=== PATIENT | male | born 1955 | race Caucasian/White ===

== ENCOUNTER 2018-08-18 13:53 | Inpatient (IN) ==
[2018-08-18] MEDS ORDERED: methylPREDNISolone 125 MG/2 ML VIAL ONE (14:02)
[2018-08-18] MEDS ORDERED: methylPREDNISolone 125 MG/2 ML VIAL IVP ONE ×2 (14:03→16:55)
--- NOTE | 2018-08-18 14:03 | Emergency Department Note ---
Disposition Clinical Impression: Neck mass, Lymphoma, Epiglottitis, Tonsillitis Disposition: Admitted As Inpatient Referrals: Kenneth Gomez MD [Primary Care Provider] - Forms: ED Satisfaction Letter General Adult HPI - General Chief complaint: ED Shortness of Breath/Dyspnea Stated complaint: ROBERTO Time Seen by Provider: 08/18/18 14:03 Source: patient Limitations: no limitations - History of Present Illness HPI Narrative: 63-year-old male reports emergency department complaining of difficulty breathing. He describes throat swelling. There is no history of irritant substance exposure or rash or lip swelling. He does not take CONTRERAS inhibitor medication. The patient has a history of thyroid surgery. He denies any chest pain or history of heart failure or CAD. There is no history of aspirated or swallowed foreign body. No abdominal pain vomiting or diarrhea. No confusion. The patient's had no trouble swallowing. There is no history of swelling of the lips or facies no fevers. He began having increasing hoarseness of voice with trouble breathing earlier this morning. There is no history of syncope, bleeding of any sort, he is not anticoagulated. There is no history of confusion. Pain Scale: 0 - Related Data Home Medications Medication Instructions Recorded Confirmed Chlorthalidone 25 mg PO DAILY 08/18/18 08/18/18 Cholecalciferol (D-3) [Vitamin D] 5,000 unit PO DAILY 08/18/18 08/18/18 Levothyroxine [Synthroid] 50 mcg PO QAM 08/18/18 08/18/18 Allergies Allergy/AdvReac Type Severity Reaction Status Date / Time levofloxacin [From Levaquin] Allergy Hives Verified 08/18/18 13:59 All systems ED: reviewed and negative except as stated. Past Medical History - Past Medical History Medical history: Reports: asthma, cancer, hypertension, other Surgical history: Reports: thyroidectomy Psychiatric history: Reports: no psych history - Social History Smoking Status: Never smoker Smokeless Tobacco Status: No Alcohol use: Reports: rarely Drug use: Reports: none Physical Exam - General Limitations: no limitations General appearance: alert, in no apparent distress, anxious, other (The patient is sitting upright, he is able to answer questions and speak in full sentences although his voice seems very hoarse. He does not appear to be in respiratory labor or lavonne distress.) - Head Head exam: atraumatic, normocephalic, normal inspection - Eye Eye exam: Present: PERRL, EOMI, conjunctival injection, other (Mild lid edema bilaterally.) - ENT ENT exam: mucous membranes moist, TM's normal bilaterally, other (Oropharynx shows hyperemia and edema, the patient is intolerant of tongue depressor examination. What is viewed does not show overt obstruction.) - Neck Neck exam: Present: normal inspection, full ROM, trachea midline. Absent: tenderness - Chest Chest inspection: Present: normal inspection. Absent: symmetric chest wall rise - Respiratory Respiratory exam: Present: normal lung sounds bilaterally. Absent: respiratory distress, prolonged expiratory phase - Cardiovascular Cardiovascular exam: Present: regular rate, normal rhythm, normal heart sounds - Abdominal Exam Abdominal exam: Present: soft, Non-Tender, normal bowel sounds. Absent: tenderness, distention, guarding, rebound, rigidity, trauma - Extremities Exam Extremities exam: Present: normal inspection, full ROM, normal capillary refill. Absent: tenderness, pedal edema, joint swelling, calf tenderness - Expanded Lower Extremity Exam Neurovascular/Tendon exam: Present: normal capillary refill. Absent: motor deficit, sensory deficit, tendon deficit, extremity cold to touch, pallor - Back Exam Back exam: Present: normal inspection, full ROM. Absent: tenderness, CVA tenderness (R), CVA tenderness (L), vertebral tenderness - Neurological Exam Neurological exam: Present: alert, oriented X3, CN II-XII intact. Absent: motor sensory deficit - Psychiatric Psychiatric exam: Present: normal affect, normal mood - Skin Skin exam: Present: warm, dry, intact, normal color Course Vital Signs Temperature 97.8 F 08/18/18 13:59 Pulse Rate 105 08/18/18 13:59 Respiratory Rate 28 08/18/18 13:59 Blood Pressure 138/104 08/18/18 13:59 O2 Sat by Pulse Oximetry 95 08/18/18 13:59 Temperature 97.8 F 08/18/18 13:59 Pulse Rate 95 08/18/18 16:59 Respiratory Rate 20 08/18/18 16:59 Blood Pressure 154/110 08/18/18 16:59 O2 Sat by Pulse Oximetry 92 08/18/18 16:59 Oxygen Delivery Oxygen Delivery Room Air Medical Decision Making - [facility] Narrative Medical decision making narrative: The patient presents with a sore throat and raspy voice. 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 The patient was monitored in the emergency department and appeared to be stable, Solu-Medrol Pepcid Benadryl were given IV. Vancomycin and Rocephin also given. Basic laboratory studies EKG were obtained no major abnormality. The patient's CT chest and soft tissue neck show neck masses chest mass suggestive of lymphoma, as well as severe tonsillitis and epiglottitis. The patient maintained his airway and was able to phonate in the emergency department. ENT was consult, the ENT APC came to the emergency department and evaluated the patient laryngoscope, they could not fully evaluate the cord to do note significant edema. After review, the patient will be admitted to the hospital. ENT will act as documentum consultant, and medicine will admit. I spoke with the hospitalist on-call who is excepted the patient to their care. The patient is agreeable. He remains stable in the emergency department pending admission. - Lab Data Lab results reviewed: Yes I reviewed the patient's lab results. Result diagrams: 08/18/18 14:20 08/18/18 14:20 Lab Results 08/18/18 08/18/18 08/18/18 Range/Units 14:20 14:20 14:20 WBC 7.3 (4.3-11.1) K/mcL RBC 5.18 (4.19-5.50) M/mcL Hgb 17.0 H (12.9-16.9) g/dL Hct 49.1 (37.5-50.1) % MCV 94.8 (83.0-100.0) fL MCH 32.8 (28.0-33.3) pg MCHC 34.6 (31.6-35.5) g/dL RDW 13.6 (11.5-14.5) % Plt Count 160 (140-400) K/mcL MPV 9.0 L (9.4-12.4) fL Immature Gran % 0.6 (0-4) % Seg Neutrophils % 61.9 % Lymphocytes % 24.8 % Monocytes % 11.0 % Eosinophils % 1.1 % Basophils % 0.6 % Neutrophils # 4.5 (1.6-8.9) K/mcL Lymphocytes # 1.8 (0.6-4.6) K/mcL Monocytes # 0.8 (0.0-1.3) K/mcL Eosinophils # 0.1 (0.0-0.6) K/mcL Basophils # 0.0 (0.0-0.2) K/mcL PT (9.4-12.1) Seconds INR APTT (26.0-36.0) Seconds Sodium 137 (136-145) mEq/L Potassium 3.4 L (3.5-5.1) mEq/L Chloride 97 L (98-107) mEq/L Carbon Dioxide 31 H (23-29) mEq/L BUN 14 (8-23) mg/dL Creatinine 0.69 L (0.70-1.30) mg/dL Est GFR ( Amer) > 60 (> 60) Est GFR (Non-Af Amer) > 60 (> 60) BUN/Creatinine Ratio 20 (6-26) Glucose 141 H (70-105) mg/dL Calculated Osmolality 287 (280-300) Lactic Acid 1.3 (0.5-2.2) mmol/L Calcium 9.4 (8.6-10.3) mg/dL Total Bilirubin 0.8 (0.3-1.0) mg/dL Direct Bilirubin 0.2 (0.0-0.2) mg/dL Indirect Bilirubin 0.6 (0.0-1.2) mg/dL AST 35 (13-39) Units/L ALT 33 (7-52) Units/L Alkaline Phosphatase 108 H (34-104) Units/L Troponin I < 0.03 (< 0.04) ng/mL B-Natriuretic Peptide (Less than 100) pg/mL Serum Total Protein 6.6 (6.4-8.9) g/dL Albumin 4.0 (3.5-5.7) g/dL Globulin 2.6 (2.4-3.5) g/dL Albumin/Globulin Ratio 1.5 (1.1-2.2) TSH (0.340-5.600) mcIU/mL Free T4 (0.70-2.00) ng/dl 08/18/18 08/18/18 08/18/18 Range/Units 14:20 14:20 14:20 WBC (4.3-11.1) K/mcL RBC (4.19-5.50) M/mcL Hgb (12.9-16.9) g/dL Hct (37.5-50.1) % MCV (83.0-100.0) fL MCH (28.0-33.3) pg MCHC (31.6-35.5) g/dL RDW (11.5-14.5) % Plt Count (140-400) K/mcL MPV (9.4-12.4) fL Immature Gran % (0-4) % Seg Neutrophils % % Lymphocytes % % Monocytes % % Eosinophils % % Basophils % % Neutrophils # (1.6-8.9) K/mcL Lymphocytes # (0.6-4.6) K/mcL Monocytes # (0.0-1.3) K/mcL Eosinophils # (0.0-0.6) K/mcL Basophils # (0.0-0.2) K/mcL PT 12.3 H (9.4-12.1) Seconds INR 1.1 APTT 32.1 (26.0-36.0) Seconds Sodium (136-145) mEq/L Potassium (3.5-5.1) mEq/L Chloride (98-107) mEq/L Carbon Dioxide (23-29) mEq/L BUN (8-23) mg/dL Creatinine (0.70-1.30) mg/dL Est GFR ( Amer) (> 60) Est GFR (Non-Af Amer) (> 60) BUN/Creatinine Ratio (6-26) Glucose (70-105) mg/dL Calculated Osmolality (280-300) Lactic Acid (0.5-2.2) mmol/L Calcium (8.6-10.3) mg/dL Total Bilirubin (0.3-1.0) mg/dL Direct Bilirubin (0.0-0.2) mg/dL Indirect Bilirubin (0.0-1.2) mg/dL AST (13-39) Units/L ALT (7-52) Units/L Alkaline Phosphatase (34-104) Units/L Troponin I (< 0.04) ng/mL B-Natriuretic Peptide 17 (Less than 100) pg/mL Serum Total Protein (6.4-8.9) g/dL Albumin (3.5-5.7) g/dL Globulin (2.4-3.5) g/dL Albumin/Globulin Ratio (1.1-2.2) TSH 2.033 (0.340-5.600) mcIU/mL Free T4 0.81 (0.70-2.00) ng/dl 08/18/18 Range/Units 16:37 WBC (4.3-11.1) K/mcL RBC (4.19-5.50) M/mcL Hgb (12.9-16.9) g/dL Hct (37.5-50.1) % MCV (83.0-100.0) fL MCH (28.0-33.3) pg MCHC (31.6-35.5) g/dL RDW (11.5-14.5) % Plt Count (140-400) K/mcL MPV (9.4-12.4) fL Immature Gran % (0-4) % Seg Neutrophils % % Lymphocytes % % Monocytes % % Eosinophils % % Basophils % % Neutrophils # (1.6-8.9) K/mcL Lymphocytes # (0.6-4.6) K/mcL Monocytes # (0.0-1.3) K/mcL Eosinophils # (0.0-0.6) K/mcL Basophils # (0.0-0.2) K/mcL PT (9.4-12.1) Seconds INR APTT (26.0-36.0) Seconds Sodium (136-145) mEq/L Potassium (3.5-5.1) mEq/L Chloride (98-107) mEq/L Carbon Dioxide (23-29) mEq/L BUN (8-23) mg/dL Creatinine (0.70-1.30) mg/dL Est GFR ( Amer) (> 60) Est GFR (Non-Af Amer) (> 60) BUN/Creatinine Ratio (6-26) Glucose (70-105) mg/dL Calculated Osmolality (280-300) Lactic Acid 0.8 (0.5-2.2) mmol/L Calcium (8.6-10.3) mg/dL Total Bilirubin (0.3-1.0) mg/dL Direct Bilirubin (0.0-0.2) mg/dL Indirect Bilirubin (0.0-1.2) mg/dL AST (13-39) Units/L ALT (7-52) Units/L Alkaline Phosphatase (34-104) Units/L Troponin I (< 0.04) ng/mL B-Natriuretic Peptide (Less than 100) pg/mL Serum Total Protein (6.4-8.9) g/dL Albumin (3.5-5.7) g/dL Globulin (2.4-3.5) g/dL Albumin/Globulin Ratio (1.1-2.2) TSH (0.340-5.600) mcIU/mL Free T4 (0.70-2.00) ng/dl - Radiology Data Radiology results reviewed: Yes I reviewed the patient's radiology results.
[2018-08-18] MEDS ORDERED: Famotidine 20 MG/2 ML VIAL IVP ONE (14:05)
[2018-08-18] MEDS ORDERED: Isovue-370 500 ML BOTTLE IVP ONE ×2 (14:06→14:24)
[2018-08-18 14:34] LABS: Basophils % 0.6 %; Eosinophils # 0.1 K/mcL (0.0-0.6); Eosinophils % 1.1 %; Hematocrit 49.1 % (37.5-50.1); Immature Granulocytes % 0.6 % (0-4); Lymphocytes # 1.8 K/mcL (0.6-4.6); Lymphocytes % 24.8 %; Mean Corpuscular HGB Conc 34.6 g/dL (31.6-35.5); Mean Corpuscular Hemoglobin 32.8 pg (28.0-33.3); Mean Corpuscular Volume 94.8 fL (83.0-100.0); Monocytes # 0.8 K/mcL (0.0-1.3); Neutrophils # 4.5 K/mcL (1.6-8.9); Platelet Count 160 K/mcL (140-400); Red Blood Count 5.18 M/mcL (4.19-5.50); Red Cell Distribution Width 13.6 % (11.5-14.5); Segmented Neutrophils % 61.9 %
[2018-08-18 14:41] LABS: INR 1.1; Prothrombin Time 12.3 Seconds (9.4-12.1)
[2018-08-18 14:44] LABS: Activated Partial Thrombo Time 32.1 Seconds (26.0-36.0)
[2018-08-18 15:01] LABS: Alanine Aminotransferase 33 Units/L (7-52); Albumin/Globulin Ratio 1.5 (1.1-2.2); Alkaline Phosphatase 108 Units/L (34-104); Aspartate Amino Transferase 35 Units/L (13-39); BUN/Creatinine Ratio 20 (6-26); Bilirubin,Direct 0.2 mg/dL (0.0-0.2); Bilirubin,Indirect 0.6 mg/dL (0.0-1.2); Bilirubin,Total 0.8 mg/dL (0.3-1.0); Blood Urea Nitrogen 14 mg/dL (8-23); Calcium 9.4 mg/dL (8.6-10.3); Carbon Dioxide 31 mEq/L (23-29); Chloride 97 mEq/L (98-107); Globulin 2.6 g/dL (2.4-3.5); Glucose 141 mg/dL (70-105); Osmolality,Calculated 287 (280-300); Potassium 3.4 mEq/L (3.5-5.1); Sodium 137 mEq/L (136-145); Total Protein 6.6 g/dL (6.4-8.9); Troponin I < 0.03 ng/mL (< 0.04); eGFR For Non-African Americans > 60 (> 60)
[2018-08-18 15:07] LABS: Thyroid Stimulating Hormone 2.033 mcIU/mL (0.340-5.600)
[2018-08-18] MEDS ORDERED: cefTRIAXone 1,000 MG in Water for inj. (sterile) 20 ML 10 ML IVP ONE (16:07)
[2018-08-18] MEDS ORDERED: Vancomycin (wt based) 1,000 MG VIAL IV ONE (16:09)
--- NOTE | 2018-08-18 17:28 | ENT - Consult Note ---
<Marylin White A - Last Filed: 08/18/18 18:18> Date of Encounter: 08/18/18 Time of Encounter: 17:24 Assessment and Plan (1) Airway obstruction Status: Acute Narrow airway demonstrated on CT scan and nasolaryngoscopy exam. See findings of nasolaryngoscopy exam. Scope was completed with Dr. Crespo ENT physician. Minor watery edema of AE folds, and false folds, effacement of the pyriform sinus on the left due to watery edema. Epiglottis sharp without significant edema. Discussed with patient that findings are believed to be likely close to baseline due to post operative changes, with slight amount of additional edema, likely due to oropharyngeal candidiasis. Patient also with angular chelitis present on examination that looks consistent with thrush. Patient is currently stable with o2 sats >93% room air. No stridor or wheezing. Recommend admission with close observation of airway and respiratory status, continuous pulse ox. Decadron 20 mg q8h x 3 doses. ENT will be available as needed. (2) History of thyroid cancer Status: Acute Patient with history of thyroid lymphoma with previous partial thyroidectomy. Patient reports history of vocal cord paralysis, right side identified after thyroid surgery. Patient denies any worsening of hoarseness and reports hoarseness has been present for two years. 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 (4) Candidal cheilitis Status: Acute Recommend nystatin cream for corners of the mouth. (5) Oropharyngeal candidiasis Status: Acute recommend nystatin swish and swallow. History of Present Illness Consult date: 08/18/18 Reason for ENT Consult: airway complication Requesting physician: Sammy Padgett History of present illness: 63-year-old male with past medical history of thyroid lymphoma with partial thyroidectomy performed approximately 2 years ago, smoker. Patient presented to emergency department with complaint of difficulty breathing, reported throat swelling with odynophagia, which he reports began this morning. He denies any difficulty controlling secretions or dysphagia. Patient denies any sick contacts or recent exposures to new environmental agents, food, etc. CT scan demonstrated Severe pharyngitis resulting in near complete effacement of the airway at the level of the hypopharynx, with Mild concurrent epiglottitis. ENT consulted for tommy oncercris for airway obstruction. Upon examination patient is stable >93% on room air. Voice is with hoarseness which is reported by patient as chronic unchanged for two years following thyroid surgery and due to vocal cord dysfunction. Patient without audible wheezing or stridor. Patient currently controlling secretions, although demonstrates increased work of swallowing. Past Med Surg Social Fam HX - Past Medical History Medical history: asthma, cancer, hypertension, other Additional medical history: THYROID CANCER WITH THYROIDECTOMY Psychiatric history: no psych history - Past Surgical History Surgical History: thyroidectomy - Social History Smoking Status: Never smoker Smokeless Tobacco Status: No Alcohol use: rarely Drug use: none - Family History Mother Adopted: No Family Member Ethnicity: Non- Living Status: Medications and Allergies Chlorthalidone 25 mg PO DAILY 08/18/18 [History] Cholecalciferol (D-3) [Vitamin D] 5,000 unit PO DAILY 08/18/18 [History] Levothyroxine [Synthroid] 50 mcg PO QAM 08/18/18 [History] RX: Nystatin Cream [Mycostatin Cream] 1 appl TP BID 10 Days #1 tube 08/19/18 [Rx] RX: Nystatin [Nystatin Suspension] 400,000 unit PO QID 14 Days #230 oral.susp 08/19/18 [Rx] Allergy/AdvReac Type Severity Reaction Status Date / Time levofloxacin [From Levaquin] Allergy Hives Verified 08/18/18 13:59 ENT - ROS - EENT Nose, mouth and throat: sore throat, throat swelling, other (ROBERTO) ENT Exam Initial Vital Signs Temp Pulse Resp BP Pulse Ox 97.8 F 105 28 138/104 95 08/18/18 13:59 08/18/18 13:59 08/18/18 13:59 08/18/18 13:59 08/18/18 13:59 - General physical appearance well developed, well nourished, no distress - Eyes PERRL, normal ocular movement - ENT normal pinna, normal nares, normal mucosa, CN 2-12 grossly intact, Other (EARS: EAC's with moderate amount of non obstructing cerumen present bilaterally, TM's normal bilaterally. NOSE: septum deviated to the right, inferior turbinates normal bilaterally,nares patent bilaterally. ORAL: white coating noted to corners of the mouth bilaterally, worse on right. No swelling of the tongue or oral mucosa. Uvula midline. ) - Neck trachea midline - Respiratory normal expansion, normal respiratory effort - Psychiatric oriented to time, oriented to person, oriented to place, other (hoarseness of voice reported as chronic) Exam Initial Vital Signs Temp Pulse Resp BP Pulse Ox 97.8 F 105 28 138/104 95 08/18/18 13:59 08/18/18 13:59 08/18/18 13:59 08/18/18 13:59 08/18/18 13:59 Results - Labs 08/18/18 14:20 08/18/18 14:20 Abnormal lab results Hgb 17.0 g/dL (12.9-16.9) H 08/18/18 14:20 MPV 9.0 fL (9.4-12.4) L 08/18/18 14:20 PT 12.3 Seconds (9.4-12.1) H 08/18/18 14:20 Potassium 3.4 mEq/L (3.5-5.1) L 08/18/18 14:20 Chloride 97 mEq/L (98-107) L 08/18/18 14:20 Carbon Dioxide 31 mEq/L (23-29) H 08/18/18 14:20 0.69 mg/dL (0.70-1.30) L 08/18/18 14:20 Glucose 141 mg/dL (70-105) H 08/18/18 14:20 108 Units/L (34-104) H 08/18/18 14:20 Diabetes panel 08/18/18 Range/Units 14:20 Sodium 137 (136-145) mEq/L Potassium 3.4 L (3.5-5.1) mEq/L Chloride 97 L (98-107) mEq/L Carbon Dioxide 31 H (23-29) mEq/L BUN 14 (8-23) mg/dL Creatinine 0.69 L (0.70-1.30) mg/dL Glucose 141 H (70-105) mg/dL Calcium 9.4 (8.6-10.3) mg/dL AST 35 (13-39) Units/L ALT 33 (7-52) Units/L Alkaline Phosphatase 108 H (34-104) Units/L Albumin 4.0 (3.5-5.7) g/dL Thyroid panel 08/18/18 Range/Units 14:20 TSH 2.033 (0.340-5.600) mcIU/mL Calcium panel 08/18/18 Range/Units 14:20 Calcium 9.4 (8.6-10.3) mg/dL Albumin 4.0 (3.5-5.7) g/dL Pituitary panel 08/18/18 08/18/18 Range/Units 14:20 14:20 Sodium 137 (136-145) mEq/L Potassium 3.4 L (3.5-5.1) mEq/L Chloride 97 L (98-107) mEq/L Carbon Dioxide 31 H (23-29) mEq/L BUN 14 (8-23) mg/dL Creatinine 0.69 L (0.70-1.30) mg/dL Glucose 141 H (70-105) mg/dL Calcium 9.4 (8.6-10.3) mg/dL TSH 2.033 (0.340-5.600) mcIU/mL Adrenal panel 08/18/18 Range/Units 14:20 Sodium 137 (136-145) mEq/L Potassium 3.4 L (3.5-5.1) mEq/L Chloride 97 L (98-107) mEq/L Carbon Dioxide 31 H (23-29) mEq/L BUN 14 (8-23) mg/dL Creatinine 0.69 L (0.70-1.30) mg/dL Glucose 141 H (70-105) mg/dL Calcium 9.4 (8.6-10.3) mg/dL Total Bilirubin 0.8 (0.3-1.0) mg/dL AST 35 (13-39) Units/L ALT 33 (7-52) Units/L Alkaline Phosphatase 108 H (34-104) Units/L Albumin 4.0 (3.5-5.7) g/dL All other labs normal. Consult Discharge Plan - Plan Referrals: Kenneth Gomez MD [Primary Care Provider] - Prescriptions: RX: Nystatin Cream [Mycostatin Cream] 1 appl TP BID 10 Days #1 tube RX: Nystatin [Nystatin Suspension] 400,000 unit PO QID 14 Days #230 oral.susp <Coco Crespo - Last Filed: 08/19/18 12:21> Date of Encounter: 08/19/18 Assessment and Plan (1) Airway obstruction Status: Chronic (2) History of thyroid cancer Status: Acute (3) Paralysis of right vocal cord Status: Chronic (4) Candidal cheilitis Status: Acute (5) Oropharyngeal candidiasis Status: Acute (6) Chest mass Status: Acute ENT Exam Initial Vital Signs Temp Pulse Resp BP Pulse Ox 97.8 F 105 28 138/104 95 08/18/18 13:59 08/18/18 13:59 08/18/18 13:59 08/18/18 13:59 08/18/18 13:59 Exam Initial Vital Signs Temp Pulse Resp BP Pulse Ox 97.8 F 105 28 138/104 95 08/18/18 13:59 08/18/18 13:59 08/18/18 13:59 08/18/18 13:59 08/18/18 13:59 Results - Labs 08/19/18 06:34 08/19/18 06:34 Abnormal lab results WBC 11.3 K/mcL (4.3-11.1) H D 08/19/18 06:34 Hgb 17.1 g/dL (12.9-16.9) H 08/19/18 06:34 MPV 9.1 fL (9.4-12.4) L 08/19/18 06:34 9.0 K/mcL (1.6-8.9) H 08/19/18 06:34 PT 12.3 Seconds (9.4-12.1) H 08/18/18 14:20 Potassium 3.4 mEq/L (3.5-5.1) L 08/18/18 14:20 Chloride 97 mEq/L (98-107) L 08/18/18 14:20 Carbon Dioxide 31 mEq/L (23-29) H 08/18/18 14:20 0.67 mg/dL (0.70-1.30) L 08/19/18 06:34 Glucose 175 mg/dL (70-105) H 08/19/18 06:34 POC Glucose 165 mg/dL (70-99) H 08/18/18 21:25 108 Units/L (34-104) H 08/18/18 14:20 Diabetes panel 08/18/18 08/19/18 Range/Units 14:20 06:34 Sodium 137 136 (136-145) mEq/L Potassium 3.4 L 3.9 (3.5-5.1) mEq/L Chloride 97 L 99 (98-107) mEq/L Carbon Dioxide 31 H 27 (23-29) mEq/L BUN 14 13 (8-23) mg/dL Creatinine 0.69 L 0.67 L (0.70-1.30) mg/dL Glucose 141 H 175 H (70-105) mg/dL Calcium 9.4 9.2 (8.6-10.3) mg/dL AST 35 (13-39) Units/L ALT 33 (7-52) Units/L Alkaline Phosphatase 108 H (34-104) Units/L Albumin 4.0 (3.5-5.7) g/dL Thyroid panel 08/18/18 Range/Units 14:20 TSH 2.033 (0.340-5.600) mcIU/mL Calcium panel 08/18/18 08/19/18 Range/Units 14:20 06:34 Calcium 9.4 9.2 (8.6-10.3) mg/dL Albumin 4.0 (3.5-5.7) g/dL Pituitary panel 08/18/18 08/18/18 08/19/18 Range/Units 14:20 14:20 06:34 Sodium 137 136 (136-145) mEq/L Potassium 3.4 L 3.9 (3.5-5.1) mEq/L Chloride 97 L 99 (98-107) mEq/L Carbon Dioxide 31 H 27 (23-29) mEq/L BUN 14 13 (8-23) mg/dL Creatinine 0.69 L 0.67 L (0.70-1.30) mg/dL Glucose 141 H 175 H (70-105) mg/dL Calcium 9.4 9.2 (8.6-10.3) mg/dL TSH 2.033 (0.340-5.600) mcIU/mL Adrenal panel 08/18/18 08/19/18 Range/Units 14:20 06:34 Sodium 137 136 (136-145) mEq/L Potassium 3.4 L 3.9 (3.5-5.1) mEq/L Chloride 97 L 99 (98-107) mEq/L Carbon Dioxide 31 H 27 (23-29) mEq/L BUN 14 13 (8-23) mg/dL Creatinine 0.69 L 0.67 L (0.70-1.30) mg/dL Glucose 141 H 175 H (70-105) mg/dL Calcium 9.4 9.2 (8.6-10.3) mg/dL Total Bilirubin 0.8 (0.3-1.0) mg/dL AST 35 (13-39) Units/L ALT 33 (7-52) Units/L Alkaline Phosphatase 108 H (34-104) Units/L Albumin 4.0 (3.5-5.7) g/dL All other labs normal. - Attending Attestation The history, physical exam, and medical decision making was performed by myself in conjunction with the nurse practioner who saw the patient at the bedside. I was physically present and actively performed and examination and medical decision making. I have verified the accuracy of the Nurse practioners documentation with regards to communicating my history, physical exam findings, and medical decision making. Flexible laryngoscopy was performed at the bedside and was dictated in separate procedure note. This showed the patient did have significant narrowing of the airway that is partially because of his previous vocal cord paralysis from previous thyroidectomy when he had the right side of his thyroid gland removed approximately 2 years ago. Patient is known to have a true vocal cord paralysis secondary to this procedure. Per patient this was done by Dr. Cornelius Hector in [place] and since that time he has had the paralysis. Upon further questioning it appears the patient had some dysfunction of the left cord after the procedure as well from the patient's description of how his vocal cord function was explained to him. We will try to obtain records from this doctor's office. Patient does have some swelling of the supraglottis as evident on flexible laryngoscopy currently. Would recommend close observation in the ICU with continuous pulse ox to make sure patient does not have any worsening of his airway. Patient currently maintaining stable oxygen saturations on room air. There is no stridor, patient has not an extremis and vitals are stable. Would recommend IV Decadron every 8 hours and we will closely follow this patient.
[2018-08-18] MEDS ORDERED: Ketorolac 15 MG/ML VIAL IVP PRN (17:35)
[2018-08-18] MEDS ORDERED: Ketorolac 30 MG/ML VIAL IVP PRN (17:35)
[2018-08-18] MEDS ORDERED: Naloxone 0.4 MG/ML INJ IVP PRN (17:35)
[2018-08-18] MEDS ORDERED: Ondansetron 4 MG/2 ML VIAL IVP PRN (17:35)
--- NOTE | 2018-08-18 17:58 | Internal Med History&Physical ---
Date of Encounter: 08/18/18 Time of Encounter: 17:30 Internal Medicine - H&P: HPI Chief complaint: Sore throat, throat swelling Admitted From: Home History of present illness: Mr. Capps is a 63 year old male with history of hypertension, status post partial thyroidectomy now on levothyroxine, who presented to the ED with 1 day history of sore throat. States that it started from this morning and progressively progressed to throat swelling associated with SOB. He has had hoarseness since the partial thyroidectomy but denies any worsening hoarseness. Denies any URI symptoms, cough, sputum production, fever/chills, or chest pain. No recent change or initiation of new medications. No palpitation, orthopnea, PND, or leg swelling. Denies any GI/ symptoms. No recent sick contacts. In the ED, he was afebrile and hemodynamically stable. He was maintaining his airway with good O2 saturation. No stridor noted. Labwork was unremarkable. CT of the neck demonstrated severe pharyngitis with near complete effacement of the airway as well as epiglottitis. He was also noted to have conglomerate nodes in the right lateral space consistent with his history of lymphoma. He was given IV Solu-Medrol, Pepcid, Benadryl, vancomycin/Rocephin, and admitted for further management with ENT consultation. Past Med Surg Social Fam HX - Past Medical History Attestation: Yes The following information was validated with the patient. Medical history: asthma, cancer, hypertension, other Additional medical history: THYROID CANCER WITH THYROIDECTOMY Psychiatric history: no psych history - Past Surgical History Surgical History: thyroidectomy - Social History Smoking Status: Never smoker Smokeless Tobacco Status: No Alcohol use: rarely Drug use: none - Family History Mother Adopted: No Family Member Ethnicity: Non- Living Status: Internal Medicine - H&P: Meds Chlorthalidone 25 mg PO DAILY 08/18/18 [History] Cholecalciferol (D-3) [Vitamin D] 5,000 unit PO DAILY 08/18/18 [History] Levothyroxine [Synthroid] 50 mcg PO QAM 08/18/18 [History] Allergy/AdvReac Type Severity Reaction Status Date / Time levofloxacin [From Levaquin] Allergy Hives Verified 08/18/18 13:59 All Systems PM: A 10-system review of systems was performed and is negative for pertinent findings except as documented above in the HPI. - Constitutional Vitals: Temp Pulse Resp BP Pulse Ox 97.8 F 95 20 154/110 92 08/18/18 13:59 08/18/18 16:59 08/18/18 16:59 08/18/18 16:59 08/18/18 16:59 Exam: General: Alert and oriented, not in acute distress. No stridor HEENT:EOMI, pupils equal, round and reactive. No lip swelling. Erythematous pharynx with part of uvula visualized Cardiovascular:Normal S1 & S2, No JVD. Pulse regular. Lungs: clear to auscultation, no wheezes/rales Abdomen:Soft, non-tender, no rigidity. Extremities:No deformity or swelling Neurological:Normal cognition and motor skills. Non-focal Skin:Normal color, no rash, no lesions. Pulses:Carotid and radial pulses normal +2. Rest of the physical exam is non contributory Internal Med - H&P Results - Labs CBC & Chem 7: 08/18/18 14:20 08/18/18 14:20 Labs: Short CBC 08/18/18 Range/Units 14:20 WBC 7.3 (4.3-11.1) K/mcL Hgb 17.0 H (12.9-16.9) g/dL Hct 49.1 (37.5-50.1) % Plt Count 160 (140-400) K/mcL Neutrophils # 4.5 (1.6-8.9) K/mcL BMP 08/18/18 14:20 Sodium 137 Potassium 3.4 L Chloride 97 L Carbon Dioxide 31 H BUN 14 Creatinine 0.69 L Glucose 141 H Calcium 9.4 Cardiac Enzymes 08/18/18 Range/Units 14:20 Troponin I < 0.03 (< 0.04) ng/mL Liver Function 08/18/18 Range/Units 14:20 Total Bilirubin 0.8 (0.3-1.0) mg/dL Direct Bilirubin 0.2 (0.0-0.2) mg/dL AST 35 (13-39) Units/L ALT 33 (7-52) Units/L Alkaline Phosphatase 108 H (34-104) Units/L Albumin 4.0 (3.5-5.7) g/dL - Impressions ITS Impressions Chest X-Ray 08/18/18 14:03 IMPRESSION: No acute process. D/ / Ambrocio Hernandez MD / Ambrocio Hernandez MD Interpreting Provider: Ambrocio Hernandez MD Soft Tissue Neck CT 08/18/18 14:06 IMPRESSION: Severe pharyngitis resulting in near complete effacement of the airway at the level of the hypopharynx. Mild concurrent epiglottitis. Masses within the right lateral space of the neck and anterior mediastinum, likely reflecting conglomerate nodes and consistent with the patient's history of lymphoma. Findings were discussed with Sammy Padgett MD at 4:09 pm on 08/18/2018. D/ / Wally Osullivan MD / Wally Osullivan MD Interpreting Provider: Wally Osullivan MD Chest CT 08/18/18 14:24 IMPRESSION: Severe pharyngitis resulting in near complete effacement of the airway at the level of the hypopharynx. Mild concurrent epiglottitis. Masses within the right lateral space of the neck and anterior mediastinum, likely reflecting conglomerate nodes and consistent with the patient's history of lymphoma. Findings were discussed with Sammy Padgett MD at 4:09 pm on 08/18/2018. D/ / Wally Osullivan MD / Wally Osullivan MD Interpreting Provider: Wally Osullivan MD - Assessment and Plan (1) Epiglottitis Current Visit: Yes Status: Acute Assessment and plan: Presented with sore throat with progressive throat swelling and SOB CT consistent with severe pharyngitis and concurrent epiglottitis. Near- complete effacement of the airway at the level of hypopharynx also seen. no stridor, maintaining good O2 saturation. Pt also reports symptomatic improvement after steroid/benadryl/pepcid and IV Abx ENT consult to determine the need to secure the airway Keep nothing by mouth, continue IV Vanc/Rocephin and decadron check rapid strep test, monospot, respiratory viral color television console monitor closely in ICU (2) Pharyngitis Current Visit: Yes Status: Acute Assessment and plan: as above Qualifiers: Pharyngitis/tonsillitis etiology: unspecified etiology Qualified Code(s): J02.9 - Acute pharyngitis, unspecified (3) HTN (hypertension) Current Visit: No Status: Chronic Assessment and plan: When necessary labetalol Qualifiers: Hypertension type: unspecified Qualified Code(s): I10 - Essential (primary) hypertension (4) Hypothyroid Current Visit: No Status: Chronic Assessment and plan: IV levothyroxine while NPO Qualifiers: Hypothyroidism type: postoperative Qualified Code(s): E89.0 - Postprocedural hypothyroidism (5) DVT prophylaxis Current Visit: Yes Status: Acute Assessment and plan: SQ heparin - Time Spent With Patient Total time spent is greater than 50% in coordination of care (as documented) at patient's floor/unit and/or counseling patient: Greater than 35 minutes
[2018-08-18] MEDS ORDERED: Vancomycin 1,750 MG in 0.9 % Sodium Chloride 250 ML IVPB SCH (18:00)
[2018-08-18] MEDS ORDERED: *HR* Labetalol 20 MG/4 ML SYRINGE IVP PRN (18:05)
[2018-08-18] MEDS: 0.9 % Sodium Chloride w KCl 20 MEQ/1,000 ML MLS IVC SCH (22:21)
[2018-08-19] MEDS ORDERED: *HR* Heparin 5,000 UNIT/ML VIAL SQ SCH (06:00)
[2018-08-19 06:48] LABS: Adenovirus Not Detected (Not Detect); Bordetella Pertussis Not Detected (Not Detect); Chlamydophila pneumoniae Not Detected (Not Detect); Coronavirus 229E Not Detected (Not Detect); Coronavirus HKU1 Not Detected (Not Detect); Coronavirus NL63 Not Detected (Not Detect); Coronavirus OC43 Not Detected (Not Detect); Human Metapneumovirus Not Detected (Not Detect); Human Rhinovirus/Enterovirus Not Detected (Not Detect); Influenza A Subtype 2009 H1 Not Detected (Not Detect); Influenza A Untypeable Not Detected (Not Detect); Influenza B Not Detected (Not Detect); Mycoplasma pneumoniae Not Detected (Not Detect); Parainfluenza Virus 1 Not Detected (Not Detect); Parainfluenza Virus 2 Not Detected (Not Detect); Parainfluenza Virus 3 Not Detected (Not Detect); Parainfluenza Virus 4 Not Detected (Not Detect); Respiratory Syncytial Virus Not Detected (Not Detect)
[2018-08-19 06:53] LABS: Basophils % 0.2 %; Hematocrit 49.7 % (37.5-50.1); Hemoglobin 17.1 g/dL (12.9-16.9); Immature Granulocytes % 0.7 % (0-4); Lymphocytes # 1.4 K/mcL (0.6-4.6); Lymphocytes % 12.2 %; Mean Corpuscular HGB Conc 34.4 g/dL (31.6-35.5); Mean Corpuscular Hemoglobin 32.8 pg (28.0-33.3); Mean Corpuscular Volume 95.2 fL (83.0-100.0); Mean Platelet Volume 9.1 fL (9.4-12.4); Monocytes # 0.8 K/mcL (0.0-1.3); Monocytes % 7.4 %; Platelet Count 185 K/mcL (140-400); Red Blood Count 5.22 M/mcL (4.19-5.50); Red Cell Distribution Width 13.4 % (11.5-14.5); Segmented Neutrophils % 79.5 %
[2018-08-19 07:10] LABS: BUN/Creatinine Ratio 19 (6-26); Blood Urea Nitrogen 13 mg/dL (8-23); Calcium 9.2 mg/dL (8.6-10.3); Carbon Dioxide 27 mEq/L (23-29); Chloride 99 mEq/L (98-107); Glucose 175 mg/dL (70-105); Magnesium 1.7 mg/dL (1.6-2.6); Osmolality,Calculated 286 (280-300); Potassium 3.9 mEq/L (3.5-5.1); Sodium 136 mEq/L (136-145); eGFR For Non-African Americans > 60 (> 60)
--- NOTE | 2018-08-19 07:59 | ENT - Progress Note ---
Date of Encounter: 08/19/18 Time of Encounter: 07:58 - Assessment and Plan (1) Airway obstruction Status: Chronic stable. Nasolaryngoscopy performed this a.m. at bedside with Dr. Crespo ENT physician. See nasolaryngoscopy findings. Previously demonstrated edema significantly reduced. Patient may advance diet as tolerated at this time. Patient has chronic narrowed airway due to right vocal cord paralysis. Upon nasolaryngoscopy left vocal cord also with dysfunction. Patient reports his breathing is currently at baseline and he currently denies any difficulty in breathing. Patient demonstrates no stridor, wheezing, and reports no shortness of breath. O2 sats currently greater than 96% on room air. Patient does have significant concern for airway obstruction if swelling reoccurs due to chronically narrowed airway, vocal cord paralysis and dysfunction. This was discussed in detail with patient today at bedside. Recommend continued oral antibiotics, nystatin swish and swallow for oropharyngeal candidiasis infection; also visualized with nasolaryngoscopy. (2) Chest mass Status: Acute Patient has 4.5 x 5.1cm anterior mediastinum mass demonstrated on CT of chest. Patient has reported history of Hodgkin lymphoma diagnosed at time of partial thyroidectomy. This should be worked up with pulmonology and oncology consult while patient is inpatient. This was discussed with hospitalist this a.m. 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 This is contributing to patient's chronic narrowing of the airway. will send outpatient referral to [facility] laryngology for further evaluation. (5) Vocal cord dysfunction Status: Acute Upon nasolaryngoscopy patient was noted to have left vocal cord dysfunction in addition to right vocal cord paralysis. CT of the chest demonstrated mass in the anterior mediastinum measuring up to 4.5 x 5.1cm which is a contributing factor for the left vocal cord dysfunction. (6) Candidal cheilitis Status: Acute Nystatin cream recommended. This medication was also ordered and sent electronically to patient's pharmacy (7) Oropharyngeal candidiasis Status: Acute Nystatin swish and swallow recommended. This medication was also ordered and sent electronically to patient's pharmacy Subjective Patient reports: no new complaints, feels better, other (patient reports that he is breathing is significantly better and is back to baseline) Objective Initial Vital Signs Temp Pulse Resp BP Pulse Ox 97.8 F 105 28 138/104 95 08/18/18 13:59 08/18/18 13:59 08/18/18 13:59 08/18/18 13:59 08/18/18 13:59 - General physical appearance well developed, well nourished, no distress - Eyes PERRL, normal ocular movement - ENT normal pinna, normal nares, CN 2-12 grossly intact - Neck trachea midline - Respiratory normal expansion, normal respiratory effort - Neurologic CN 2-12 grossly intact, normal coordination, normal sensation - Musculoskeletal normal gait, normal posture - Labs 08/19/18 06:34 08/19/18 06:34 Diabetes panel 08/18/18 08/19/18 Range/Units 14:20 06:34 Sodium 137 136 (136-145) mEq/L Potassium 3.4 L 3.9 (3.5-5.1) mEq/L Chloride 97 L 99 (98-107) mEq/L Carbon Dioxide 31 H 27 (23-29) mEq/L BUN 14 13 (8-23) mg/dL Creatinine 0.69 L 0.67 L (0.70-1.30) mg/dL Glucose 141 H 175 H (70-105) mg/dL Calcium 9.4 9.2 (8.6-10.3) mg/dL AST 35 (13-39) Units/L ALT 33 (7-52) Units/L Alkaline Phosphatase 108 H (34-104) Units/L Albumin 4.0 (3.5-5.7) g/dL Thyroid panel 08/18/18 Range/Units 14:20 TSH 2.033 (0.340-5.600) mcIU/mL Calcium panel 08/18/18 08/19/18 Range/Units 14:20 06:34 Calcium 9.4 9.2 (8.6-10.3) mg/dL Albumin 4.0 (3.5-5.7) g/dL Pituitary panel 08/18/18 08/18/18 08/19/18 Range/Units 14:20 14:20 06:34 Sodium 137 136 (136-145) mEq/L Potassium 3.4 L 3.9 (3.5-5.1) mEq/L Chloride 97 L 99 (98-107) mEq/L Carbon Dioxide 31 H 27 (23-29) mEq/L BUN 14 13 (8-23) mg/dL Creatinine 0.69 L 0.67 L (0.70-1.30) mg/dL Glucose 141 H 175 H (70-105) mg/dL Calcium 9.4 9.2 (8.6-10.3) mg/dL TSH 2.033 (0.340-5.600) mcIU/mL Adrenal panel 08/18/18 08/19/18 Range/Units 14:20 06:34 Sodium 137 136 (136-145) mEq/L Potassium 3.4 L 3.9 (3.5-5.1) mEq/L Chloride 97 L 99 (98-107) mEq/L Carbon Dioxide 31 H 27 (23-29) mEq/L BUN 14 13 (8-23) mg/dL Creatinine 0.69 L 0.67 L (0.70-1.30) mg/dL Glucose 141 H 175 H (70-105) mg/dL Calcium 9.4 9.2 (8.6-10.3) mg/dL Total Bilirubin 0.8 (0.3-1.0) mg/dL AST 35 (13-39) Units/L ALT 33 (7-52) Units/L Alkaline Phosphatase 108 H (34-104) Units/L Albumin 4.0 (3.5-5.7) g/dL Consult Discharge Plan - Plan Referrals: Kenneth Gomez MD [Primary Care Provider] - Prescriptions: Nystatin Cream [Mycostatin Cream] 1 appl TP BID 10 Days #1 tube Nystatin [Nystatin Suspension] 400,000 unit PO QID 14 Days #230 oral.susp
[2018-08-19] MEDS ORDERED: Levothyroxine Sodium 100 MCG VIAL IVP SCH (09:00)
[2018-08-19] MEDS ORDERED: Dexamethasone 10 MG/ML VIAL IVP SCH (09:00)
[2018-08-19] MEDS ORDERED: cefTRIAXone 1,000 MG in Water for inj. (sterile) 20 ML 10 ML IVP SCH (09:00)
[2018-08-19 09:05] VITALS: BP 124/88
[2018-08-19] MEDS: 0.9 % Sodium Chloride w KCl 20 MEQ/1,000 ML MLS IVC SCH (09:36)
--- NOTE | 2018-08-19 10:15 | Electrocardiograph Report ---
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
[2018-08-19] MEDS ORDERED: Aminoglycoside Consult 1 EACH MC ONE (10:48)
--- NOTE | 2018-08-19 10:55 | Discharge Summary ---
Orders not resulted at time of discharge: Pending orders 08/18/18 16:37 Culture,Blood [] Stat Date of Encounter: 08/19/18 Time of Encounter: 10:47 - Discharge Diagnosis (1) Epiglottitis Priority: Primary Status: Suspected (2) Pharyngitis Priority: Primary Status: Acute Qualifiers: Pharyngitis/tonsillitis etiology: unspecified etiology Qualified Code(s): J02.9 - Acute pharyngitis, unspecified (3) HTN (hypertension) Priority: Secondary Status: Chronic Qualifiers: Hypertension type: unspecified Qualified Code(s): I10 - Essential (primary) hypertension (4) DVT prophylaxis Priority: Secondary Status: Acute (5) Hypothyroid Priority: Secondary Status: Chronic Qualifiers: Hypothyroidism type: postoperative Qualified Code(s): E89.0 - Postprocedural hypothyroidism (6) Mediastinal mass Priority: Secondary Status: Chronic (7) Airway obstruction Priority: Secondary Status: Chronic (8) Candidal cheilitis Priority: Secondary Status: Acute (9) Lymphoma Priority: Secondary Status: Chronic Qualifiers: Lymphoma type: unspecified type Lymphoma site: unspecified region Qualified Code(s): C85.90 - Non-Hodgkin lymphoma, unspecified, unspecified site (10) Neck mass Priority: Secondary Status: Chronic (11) Paralysis of right vocal cord Priority: Secondary Status: Chronic Hospital course: Mr. Capps is a 63 year old male 63 year old male with history of hypertension, status post partial thyroidectomy now on levothyroxine, who prese nted to the ED with 1 day history of sore throat. CT of the neck demonstrated severe pharyngitis with near complete effacement of the airway as well as epiglottitis. T/CT chest w con IMPRESSION: Severe pharyngitis resulting in near complete effacement of the airway at the level of the hypopharynx. Mild concurrent epiglottitis. Masses within the right lateral space of the neck and anterior mediastinum, likely reflecting conglomerate nodes and consistent with the patient's history of lymphoma. A mass is also seen within the anterior mediastinum measuring up to 4.5 x 5.1 cm in diameter on image number 81 of series 3. Patient was admitted to the Intensive care unit. ENT consulted, evaluated the patient and recommended to continue the patient on oral antibiotics and to give three doses of decadron. ENT also recommended outpatient follow up at [facility]. After discussing Ct findings with ICU attending he recommended the patient to be transferred to [facility] as patient is very high risk for an acute airways closure and discharging the patient and scheduling an appointment as outpatient could take too long. I talked to the patient and offered transferring him to [facility] for evaluation and explained to him the complexity of his condition and being high risk of acute airways closure and potentially dying from it. Patient refused to be transferred to [facility] and decided to sign AMA. - Time Spent with Patient Total time spent providing and/or coordinating discharge services: Time spent: Greater than 30 minutes (40) - Discharge Medications Prescriptions: New Nystatin Cream [Mycostatin Cream] 1 appl TP BID 10 Days #1 tube Nystatin [Nystatin Suspension] 400,000 unit PO QID 14 Days #230 oral.susp No Action Cholecalciferol (D-3) [Vitamin D] 5,000 unit PO DAILY Levothyroxine [Synthroid] 50 mcg PO QAM Chlorthalidone 25 mg PO DAILY Home Medications: Chlorthalidone 25 mg PO DAILY 08/18/18 [History] Cholecalciferol (D-3) [Vitamin D] 5,000 unit PO DAILY 08/18/18 [History] Levothyroxine [Synthroid] 50 mcg PO QAM 08/18/18 [History] Nystatin Cream [Mycostatin Cream] 1 appl TP BID 10 Days #1 tube 08/19/18 [Rx] Nystatin [Nystatin Suspension] 400,000 unit PO QID 14 Days #230 oral.susp 08/19/18 [Rx] Allergies/Adverse Reactions: Allergy/AdvReac Type Severity Reaction Status Date / Time levofloxacin [From Levaquin] Allergy Hives Verified 08/18/18 13:59 Date of admission: 08/18/18 22:14 Primary care physician: Kenneth Gomez MD Consults: 08/18/18 17:37 Consult to ENT [CONS] Stat Consulting Provider: ENT Ellie Reason for Consult: severe pharyngitis with epiglottis, called from ED Call Completed: Yes 08/18/18 18:04 Consult to ENT [CONS] Stat Consulting Provider: ENT Ellie Reason for Consult: Tonsillitis/epiglottitis Dr. White Time Notified: 17:00 Call Completed: Yes - Constitutional Vitals: Temp Pulse Resp BP Pulse Ox 98.0 F 97 20 124/88 93 08/19/18 07:31 08/19/18 09:00 08/19/18 09:00 08/19/18 09:00 08/19/18 09:00 Exam: Vitals: Reviewed General: Alert and oriented x4. In no distress. HEENT: EOM, pupils equal, round and reactive. Cardiovascular: RRR, Normal S1 & S2, no rubs, murmurs or gallops. No JVD. Pulse regular. Lungs: CTA b/l, no wheezes or crackles. Abdomen: Obese, soft, non-tender, no rigidity. Extremities: No deformity, no edema or tenderness, no joint swelling or clubbing. Neurological: Normal cognition and motor skills. Rest of the physical exam is non contributory - Patient Status Disposition: Left Against Medical Advice Condition: Good Functional capacity at discharge: independent ambulation Overall status at discharge: patient is progressing back to baseline - Discharge Instructions Follow Up With: Kenneth Gomez MD [Primary Care Provider] -
--- NOTE | 2018-08-19 11:29 | ENT - Procedure Note ---
Date of procedure: 08/18/18 Procedure: Procedure: Flexible laryngoscopy CPT 52446 Preprocedure diagnosis: 1. Right true vocal cord paralysis 2. Airway obstruction 3. History of lymphoma the thyroid gland 4. Dysphagia Postprocedure diagnosis 1. Right true vocal cord paralysis 2. Airway obstruction 3. History of lymphoma the thyroid gland 4. Dysphagia 5. Left true vocal cord dysfunction Flexible laryngoscopy: Procedure was explained to the patient at the bedside verbal consent was obtained. Bilateral nares are sprayed with a 50-50 mixture of oxymetazoline and topical lidocaine. Time was given to allow anesthesia as well as decongestion of the nasal airway. Flexible laryngoscope was then advanced into the right naris. Nasal mucosa was unremarkable but septum was deviated to the left. Scope was further advanced, nasopharynx was within normal limits, tongue base was normal without mass or lesion, petiole of the epiglottis was sharp without mass or lesion. The aryepiglottic folds were slightly edematous with watery edema at the inferior aspect and also extending to the arytenoids. Piriform sinuses with watery edema bilaterally with effacement of the left piriform sinus. The right true vocal cord was nonmobile and there was shortening of the right true vocal cord and displacement of the right arytenoid anteriorly. Left true vocal cord was sluggish but did have some abduction with sniff. Due to the anterior displacement of the arytenoid on the right side and the displacement and edema of the AE fold on the right, the true vocal cords and glottis could not adequately be seen. No pooling of secretions. No masses visualized. Scope was removed. Patient tolerated this procedure well. Anesthesia: topical Was there an assistant principal present: No Estimated blood loss (cc): 0 Condition: stable
== END 2018-08-19 10:49 | disposition left against medical advice (07) | DRG 153 ==
LOC: EMEROOARM 13:53 → ICNU 13:53 → SUATTDRO 22:14
PROVIDERS: ADMIT Student in an Organized Health Care Education/Training Program; ATTEND Internal Medicine